=== PATIENT | male | born 1965 | race Caucasian/White ===

== ENCOUNTER 2016-09-27 17:00 | Observation (INO) | payer MEDICAID ==
--- NOTE | 2016-09-27 18:32 | EDPHY ---
H & P Stated Complaint: FROM ASSISTED, FOR PLACEMENT R/T [place]S DX Time Seen by Provider: 09/27/16 17:31 HPI/ROS: CHIEF COMPLAINT: Sent to emergency department for placement HISTORY OF PRESENT ILLNESS: The patient is a 50-year-old gentleman with history of Orlando's chorea as well as current homeless social state who presents to the ED today with failure to thrive. The patient reportedly has had assault charges filed against him for what is likely abnormal movement secondary to his Orlando's disease. The patient had been in senior care. He was referred to the ED as they do not feel that he currently has actually assaulted anyone. The patient continues to have failure to thrive secondary to his severe neurologic disease and current homeless status. In the ED, the patient denies acute complaints. His history is limited secondary to his severe dementia and Orlando's disease. REVIEW OF SYSTEMS: A comprehensive 10 point review of systems is otherwise negative aside from elements mentioned in the history of present illness. Source: Patient Exam Limitations: Clinical condition, Physical impairment - Personal History Current Tetanus/Diphtheria Vaccine: Unsure Current Tetanus Diphtheria and Acellular Pertussis (TDAP): Unsure - Medical/Surgical History Hx Asthma: No Hx Chronic Respiratory Disease: No Hx Diabetes: No Hx Cardiac Disease: No Hx Renal Disease: No Hx Cirrhosis: No Hx Alcoholism: No Hx HIV/AIDS: No Hx Splenectomy or Spleen Trauma: No Other PMH: pmh: Cleveland's, Orlando's dementia, Orlando's psychotic disorder, heel spurs. psh:denies - Social History Smoking Status: Never smoked - Physical Exam Exam: General Appearance: Thin, disheveled, cachectic male, pleasant Eyes: Pupils equal and round no pallor or injection ENT, Mouth: Mucous membranes moist Respiratory: There are no retractions, lungs are clear to auscultation Cardiovascular: Regular rate and rhythm Gastrointestinal: Abdomen is soft and nontender, no masses, bowel sounds normal Neurological: Underline movement consistent with his Orlando's disease. No focal deficit appreciated Skin: Warm and dry, no rashes Musculoskeletal: Neck is supple nontender Extremities: symmetrical, full range of motion Psychiatric: Alert and oriented x2, non agitated Constitutional: Initial Vital Signs Temperature (C) 37.1 C 09/27/16 17:00 Heart Rate 96 09/27/16 17:00 Respiratory Rate 20 09/27/16 17:00 O2 Sat (%) 95 09/27/16 17:00 O2 Delivery Mode Room Air Allergies/Adverse Reactions: venom-wasp Allergy (Intermediate, Verified 09/02/16 22:32) bee pollen Allergy (Verified 09/02/16 18:38) Penicillins Allergy (Verified 07/13/16 16:55) venom-honey bee Allergy (Verified 09/02/16 22:32) Home Medications: Medication Instructions Recorded NK [No Known Home Meds] 09/02/16 Medical Decision Making ED Course/Re-evaluation: I discussed the case with our child support case officer Brittany who informs me the patient will need to be admitted for placement. The patient is not currently suicidal or homicidal. I do not feel that he needs primary psychiatric placement but instead needs long-term care. By the case folder report, there is the possibility of getting placement set up tomorrow at 9 o'clock in the morning. Patient is pleasant, cooperative and not meet criteria for 72 hour mental health hold. He is amenable to hospitalizations so that we can assist him with long-term placement. Consultation is made with the hospitalist service for admission. Departure - Departure Disposition: [facility] Inpatient Acute Clinical Impression: Orlando's disease, Homeless Condition: Fair
[2016-09-27 22:51] VITALS: RESP 18
[2016-09-28] MEDS ORDERED: ONDANSETRON DISINTEGRATING 4 MG TAB PO PRN (00:05)
[2016-09-28] MEDS ORDERED: ACETAMINOPHEN 325 MG TAB PO PRN (00:05)
[2016-09-28] MEDS ORDERED: LORazepam 0.5 MG TAB PO PRN (00:05)
--- NOTE | 2016-09-28 05:48 | PDGENHP ---
History and Physical - Chief Complaint Choreaform movements - History of Present Illness Pt is a 50 year old undomiciled male with Warren's chorea who was presents to the ED with failure to thrive. Per report patient was recently arrested for alleged assault, however was concluded that assault was unintentional due to patient's choreiform movements. He was in halfway however today please have referred patient to ED for placement in an assisted living facility as assault charges were dropped. The patient continues to have failure to thrive secondary to his severe neurologic disease and current homeless status. He has had 2 admissions here in the last 2 months for similar issues. On arrival to the ED patient is hemodynamically stable and afebrile. He has no complaints. Labs are unremarkable. Was then admitted to the hospital service for further management. History Information - Allergies/Home Medication List Allergies/Adverse Reactions: venom-wasp Allergy (Intermediate, Verified 09/02/16 22:32) bee pollen Allergy (Verified 09/02/16 18:38) Penicillins Allergy (Verified 07/13/16 16:55) venom-honey bee Allergy (Verified 09/02/16 22:32) Home Medications: NK [No Known Home Meds] 09/02/16 [Last Taken Unknown] I have personally reviewed and updated: family history, medical history, social history, surgical history - Past Medical History Additional medical history: Cleveland's disease - Surgical History Additional surgical history: Denies - Family History Additional family history: No family history of Cleveland - Social History Smoking Status: Never smoked Alcohol Use: None Drug Use: None Additional social history: Patient currently homeless. Reports his mother within the last year, states he does have 1 friend who lives in [facility]. No other family present. Review of Systems ROS: 10pt was reviewed & negative except for what was stated in HPI & below Physical Exam Temp Pulse Resp BP Pulse Ox 37.0 C 78 18 93 09/27/16 22:42 09/27/16 22:42 09/27/16 22:42 09/27/16 22:42 Constitutional: no apparent distress, not in pain, cachectic Eyes: PERRL, anicteric sclera, EOMI Ears, Nose, Mouth, Throat: moist mucous membranes, hearing normal, ears appear normal, no oral mucosal ulcers Cardiovascular: regular rate and rhythym, no murmur, rub, or gallop, pulses symmetric bilaterally, No edema Peripheral Pulses: 2+: dorsalis-pedis (R), dorsalis-pedis (L) Respiratory: no respiratory distress, no rales or rhonchi, clear to auscultation Gastrointestinal: normoactive bowel sounds, soft, non-tender abdomen, no palpable masses Genitourinary: no bladder fullness, no bladder tenderness Skin: warm, normal color, no rashes or abrasions, no fluctuance, No mottled Musculoskeletal: other (Severe choreiform movements) Neurologic: AAOx3, sensation intact bilaterally Psychiatric: not anxious, not encephalopathic, thought process linear Assessment & Plan Assessment: Patient is a 51-year-old male with history of advanced Warren's disease and who is homeless who presents to the ED with with failure to thrive. Plan: # advanced Warren's disease Patient has no acute problems at this presentation, however has chronic failure to thrive due to his advancing Warren's disease, although patient denies this diagnosis. Will consult case management in the morning in attempt for SNF/ assisted living placement. Will encourage p.o. intake. # dispo: admit as observation for failure to thrive # gen: regular diet DVT ppx: low risk Full code
[2016-09-28 07:24] VITALS: PULSE 84; O2SAT 94
[2016-09-28 07:25] VITALS: TEMP 98.4
--- NOTE | 2016-09-28 14:13 | GDS ---
[f rep st] DISCHARGE SUMMARY DISCHARGE DIAGNOSES: Advanced Sar[place] disease. PHYSICAL EXAM: GENERAL: The patient is alert. VITAL SIGNS: Afebrile at 36.9, pulse is 84, respira tory rate is 18, blood pressure patient refuses, he is saturating greater than 90% on room air. I have seen and evaluated the patient on the day of discharge. HOSPITAL COURSE: The patient is a 51-year-old male who has advanced Saratoga disease. He presente d to the emergency room with complaints of failure to thrive. He is noted to be homeless at this [facility]. He was previously residing at [facility], but is now currently homeless, and had a lengthy coordi nation with [facility], as well as the case supervisor, regarding his disposition plan. During this hospita lization, he did receive a consultation from [facility]. It is felt that he is decisional and still does have decisional capacity. The patient would like to be discharged from the hospital to go [place] [facility] where he [facility] reside for a temporary amount of time. He does have the funds to provide this option for himself. I have been in discussion with the Saratoga specialist at [facility]. He does have a n appointment there on 10/03/2016. However, the patient denies that he actually suffers from Hunting ton's at this time. He has been offered several disposition options; however, is refusing all of the m. DISPOSITION: Given that the patient is deemed decisional, we will allow him to be [facility]. FOLLOWUP: He does have outpatient followup if he chooses to participate. DISCHARGE MEDICATIONS: I have not provided the patient with any prescriptions at the time of disposi tion. /[id number]/MODL
== END 2016-09-28 13:56 | disposition home or self-care (01) ==
LOC: F3E 22:32
PROVIDERS: ADMIT Internal Medicine; ATTEND Internal Medicine
DX: R62.7 Adult failure to thrive (principal); G10 Huntington's disease; F02.80 Dementia in other diseases classified elsewhere, unspecified severity, without behavioral disturbance, psychotic disturbance, mood disturbance, and anxiety; Z59.0 Homelessness